=== PATIENT | male | born 1965 | race Caucasian/White ===

== ENCOUNTER → 2020-01-11 | Outpatient (CLI) | payer BC ==
--- NOTE | 2020-01-11 11:08 | US ---
EXAMINATION TYPE: US prostate transrectal DATE OF EXAM: 01/11/2020 COMPARISON: NONE CLINICAL HISTORY: R97.20 elevated psa. This examination was performed using the transrectal probe. EXAM MEASUREMENTS: Gland Size: 4.4 x 2.5 x 3.4 Volume: 19.6 Predicted PSA: 2.4 Actual PSA (if available):5.9 Heterogeneous echotexture with calcifications. Possible cyst visualized within the central zone IMPRESSION: Heterogenous prostate gland with central zone calcifications and possible cyst in the ce ntral zone. No suspicious sonographic findings. Screening prostate MRI could be considered in this pa tient with an elevated PSA. Predicted PSA = volume x 0.12 ng/ml Calculated Volume = 0.5236 x L x W x H
== END | disposition home or self-care (01) ==
LOC: RADUSWWP 09:26
PROVIDERS: ATTEND Internal Medicine
DX: N42.89 Other specified disorders of prostate (principal)
CPT/HCPCS: 76872

== ENCOUNTER → 2020-04-25 | Outpatient (CLI) | payer BC ==
--- NOTE | 2020-04-25 12:48 | XR ---
EXAMINATION TYPE: XR chest 2V DATE OF EXAM: 04/25/2020 COMPARISON: NONE TECHNIQUE: PA and lateral views submitted. HISTORY: Presurgical FINDINGS: The lungs are clear and there is no pneumothorax, pleural effusion, or focal pneumonia. Hypertrophi c and degenerative change of the spine. No overt failure. Heart size normal. Apical pleural thickenin g. IMPRESSION: 1. No acute process.
[2020-04-25 13:05] LABS: Basophils % (A) 1 %; Eosinophils # (A) 0.1 k/uL (0-0.7); Eosinophils % (A) 2 %; HGB 14.7 gm/dL (13.0-17.5); Lymphocytes % (A) 27 %; MCH 31.5 pg (25.0-35.0); MCHC 33.5 g/dL (31.0-37.0); Mean Platelet Volume 7.2; Monocytes # (A) 0.1 k/uL (0-1.0); Monocytes % (A) 4 %; Neutrophils # (A) 2.4 k/uL (1.3-7.7); Neutrophils % (A) 64 %; Platelet Count 212 k/uL (150-450); RBC 4.68 m/uL (4.30-5.90); RDW 12.7 % (11.5-15.5); WBC 3.8 k/uL (3.8-10.6)
[2020-04-25 13:19] LABS: African American GFR (CKD) >90 (>60 ml/min/1.73 sqM); Anion Gap 8 mmol/L; Blood Urea Nitrogen 16 mg/dL (9-20); Calcium 9.1 mg/dL (8.4-10.2); Carbon Dioxide 25 mmol/L (22-30); Chloride 105 mmol/L (98-107); Glucose 106 mg/dL (74-99); Non-African American GFR(CKD) >90 (>60 ml/min/1.73 sqM); Potassium 4.4 mmol/L (3.5-5.1); Sodium 138 mmol/L (137-145)
== END | disposition home or self-care (01) ==
LOC: LABPAT 11:21
PROVIDERS: ATTEND Urology
DX: Z01.818 Encounter for other preprocedural examination (principal); C61 Malignant neoplasm of prostate; R58 Hemorrhage, not elsewhere classified; R53.83 Other fatigue; R05 Cough
CPT/HCPCS: 36415; 71046; 80048; 85025; 86850; 86900; 86901; 93005

== ENCOUNTER 2020-05-04 09:46 | Observation (INO) | payer BC ==
--- NOTE | 2020-04-17 12:16 | P.HPIHPCON ---
History of Present Illness H&P Date: 05/04/20 Chief Complaint: Prostate cancer Mr Cerda is 55 yo male with hx of lesly 7(4+3) prostae cancer. We discussed with him the options including surgery and radiation therapy. We discussed the risk and benefits with him of each approach. I discussed with surgery the risk of urinary incontinence or erectile dysfunction, I also discussed with him risk of injury to nearby organs including but not limited bowels, rectum, bladder and blood vessels. I also discussed the risk from anesthesia with him. Which included blood clots, heart attack, stroker and even . He understood all the risk and agreed to proceed with a robotic-assisted radical prostatectomy and plevic lymph node dissection Consent for Procedure: I have explained the operation/procedure to the patient, including the risks, benefits, side effects, alternative therapies (including not receiving the proposed treatment or service), the likelihood of the patient achieving his/her goals, and potential recuperation problems for the procedure/sedation/analgesia, as well as any blood products, if indicated. I also explained to the patient the risks, benefits and side effects of the alternatives, as well as the risks related to not receiving the proposed procedure, care, treatment, or services. Surgical - Exam - General well developed, well nourished, no distress - Respiratory normal expansion, normal respiratory effort - Abdomen Abdomen: soft, non tender, no guarding, no rigid, no rebound - Psychiatric oriented to time, oriented to person, oriented to place Assessment and Plan Assessment: 55 yo male with hx lesly 7 (4+3) prostate cancer -OR for robotic prostatectomy and pelvic lymph node dissection
[2020-05-02 12:14] VITALS: BMI 34.9
[~2020-05-04 09:46] MED LIST: DEXAMETHASONE SOD PHOSPHATE 10 MG/ML 1 ML VIAL IV ONE; HYDROmorphone 0.5 MG/0.5 ML SYRINGE IVP PRN; LIDOCAINE 1% (10MG/ML) FOR IV START INTRADERMA PRN; ONDANSETRON 4 MG/2 ML VIAL IVP ONE
[2020-05-04] MEDS: LACTATED RINGERS 1,000 ML IV SCH (10:41)
[2020-05-04] MEDS ORDERED: ROCURONIUM BROMIDE 10 MG/ML 5 ML VIAL IV ONE (11:19)
[2020-05-04] MEDS ORDERED: LIDOCAINE 1% INJ 10MG/ML (20 ML MDV) ONE (11:19)
[2020-05-04] MEDS ORDERED: GLYCOPYRROLATE 0.2 MG/ML 2 ML VIAL ONE (11:19)
[2020-05-04] MEDS ORDERED: SUCCINYLCHOLINE CHLORIDE 100 MG/5 ML SYR IV ONE (11:19)
[2020-05-04] MEDS ORDERED: NEOSTIGMINE 1 MG/ML 10 ML VIAL ONE (11:19)
[2020-05-04] MEDS ORDERED: MIDAZOLAM 2 MG/2 ML VIAL ONE (11:19)
[2020-05-04] MEDS ORDERED: PROPOFOL 10 MG/ML 20 ML VIAL IV ONE (11:19)
[2020-05-04] MEDS ORDERED: PHENYLEPHRINE-0.9% NACL SYG 1 MG/10 ML SYRINGE ONE (11:19)
[2020-05-04] MEDS ORDERED: HYDROmorphone (PF) 1 MG/ML ONE (11:19)
[2020-05-04] MEDS ORDERED: ePHEDrine SULFATE/0.9% NACL/PF 50 MG/5 ML SYRINGE IV ONE (11:19)
[2020-05-04] MEDS ORDERED: fentaNYL (PF) 50 MCG/ML 2 ML AMP ONE (11:19)
[2020-05-04] MEDS ORDERED: BUPIVACAINE (PF) 0.25% 30 ML VIAL SQ ONE ×2 (11:26→16:51)
[2020-05-04] MEDS ORDERED: LACTATED RINGERS 1,000 ML IV ONE ×4 (12:30→16:39)
[2020-05-04] MEDS ORDERED: HYDROmorphone 1 MG/ML 1 ML SYRINGE IVP PRN (16:54)
--- NOTE | 2020-05-04 17:01 | P.OP ---
Date of Procedure: 05/04/20 Preoperative Diagnosis: Prostate cancer Postoperative Diagnosis: Same Procedure(s) Performed: Robotic prostatectomy, pelvic lymph node dissection Implants: None Anesthesia: INDIRA Surgeon: Pavel Hardwick Neon Light Installer #1: Joaquin Arizmendi Estimated Blood Loss (ml): 150 Pathology: other (Prostate, bilateral pelvic lymph node) Condition: stable Disposition: PACU Indications for Procedure: Mr Cerda is 55 yo male with hx of lesly 7(4+3) prostae cancer. We discussed with him the options including surgery and radiation therapy. We discussed the risk and benefits with him of each approach. I discussed with surgery the risk of urinary incontinence or erectile dysfunction, I also discussed with him risk of injury to nearby organs including but not limited bowels, rectum, bladder and blood vessels. I also discussed the risk from anesthesia with him. Which included blood clots, heart attack, stroker and even . He understood all the risk and agreed to proceed with a robotic-assisted radical prostatectomy and plevic lymph node dissection Operative Findings: Thickened urethra, sent for frozen to rule out prostatic tissue within the urethra. Frozen came back as fibromuscular tissue, negative for malignancy Description of Procedure: After preoperative antibiotics were started, the patient was taken to the operating room. Anesthesia was induced and the patient was placed in a low lithitomy position, with adequate padding of the pressure points, shoulders, back, legs and arms. He was then prepped and draped in the standard fashion. A critical pause was performed using two patient identifiers. A 16F fernandez catheter was placed to gravity drainage. A pneumo-peritoneum was created with placement of a Veress needle to 20 mm Hg without complication, and a 8 Fr trocar was placed above the umbillicus. Under direct vision a 8mm robotic ports was placed lateral to each rectus slightly below the camera port. The left iliac fossa 8mm port was placed. The right recruiting assistant right iliac fossa 12mm port and right paramedian 5mm portwere placed. After the patient was placed in the trendelenberg position, the robot was then docked to the 8mm robotic ports and then each robotic arm and tower was checked in relation to the patient's legs and hands to avoid inadvertent compression. The peritoneal cavity was inspected. An inverted U-shaped incision began laterally to the left medial umbilical ligament and extended high across the midline to the right umbilical ligament. The limbs of the "U" extended to the level of the vasa on both sides. We next developed the preperitoneal space and the space of Retzius. Cautery was used to dissected the bladder away from the prostate. After the anterior bladder neck was incised and the bladder entered the the posterior bladder neck was exposed and the ureteral orifces identified. The posterior bladder neck was then incised and dissected away from the prostate. The vas and the seminal vesicles were now exposed and dissected to their insertions into the prostate and were not spared. The posterior layer of the Denonvillier's fascia was incised to enter andres the plane between prostate and perirectal fat. Each lateral pedicle was controlled with clips and cautery for hemostasis. Nerve preservation was performed standard nerve sparing was performed on the right and standard was performed on the left. The puboprostatic ligament was incised where it inserted into the apex of the prostate and a plane between urethra and dorsal venous complex developed to expose the anterior urethral surface. The anterior wall of the urethra was transected with the cut setting a few millimeters distal to the apex of the prostate. The dorsal vein was ligated using 3-0 V lock. At this time it was noticed that the uretheral tissue was thickened. The urethral margin was sent for frozen, which came back as fibromuscular tissue negative for malignancy bilateral obturator and external iliac lymph node packets were carefully dissected after careful visualization of the hypogastric artery and obturator nerve. There was careful attention paid to hemostasis with judicious use of cautery. The urethrovesical anastomosis was performed . the posterior denovillers was reapproximated using 3-0 V lock. A 6 and 6 inch 3-0 V-Lock suture was used to anastomose the urethra and bladder, starting at the 6:00 posterior position. Mucosa was secured in every stitch, to ensure a mucosa to mucosa anastomosis. The stitch was regularly cinched and the anastomosis tightened. Care was taken to not violate the ureteral orifices. The Fernandez catheter was advanced, the bladder filled, and the anastomosis was tested, as described above. Anastomsis was watertight at 150mL The periumbilical fascia was closed with 1-0-PDS suture in running fashion. All ports were closed with a subcuticular 4-0 monocryl and Dermabond. Sponge, instrument, and needle counts were correct at the end of the case x2. All specimens including prostate and lymph nodes were sent to pathology for diagnosis and will be available in a week. The patient tolerated the surgery well and without complication. He awoke without difficulty and was taken to the recovery room in stable condition
[2020-05-04] MEDS: KETOROLAC 30 MG/ML 1 ML VIAL IVP SCH ×2 (18:22→23:04)
[2020-05-04] MEDS: D5-0.45% NACL WITH KCL 20MEQ/L 1,000 ML IV SCH (18:23)
[2020-05-04] MEDS: HEPARIN SODIUM,PORCINE 5,000 UNIT/ML 1 ML VIAL SQ SCH (23:58)
[2020-05-05] MEDS: D5-0.45% NACL WITH KCL 20MEQ/L 1,000 ML IV SCH ×3 (04:06→15:42)
[2020-05-05] MEDS: KETOROLAC 30 MG/ML 1 ML VIAL IVP SCH ×3 (05:36→17:33)
[2020-05-05] MEDS: HEPARIN SODIUM,PORCINE 5,000 UNIT/ML 1 ML VIAL SQ SCH ×2 (08:18→15:43)
--- NOTE | 2020-05-05 17:48 | P.PN ---
Subjective Progress Note Date: 05/05/20 Principal diagnosis: Prostate cancer POD #1 S/P Robotic prostatectomy, no acute overnight event, mild incisional pain, tolerating diet. denies N/V. Objective - Vital Signs Vital signs: Vital Signs Temp 98.1 F 05/05/20 14:10 Pulse 81 05/05/20 14:10 Resp 16 05/05/20 14:10 BP 100/64 05/05/20 14:10 Pulse Ox 94 L 05/05/20 14:10 Intake & Output 05/04/20 05/05/20 05/05/20 18:59 06:59 18:59 Intake Total 3125 437.5 1000 Output Total 150 850 Balance 2975 -412.5 1000 Weight 103.3 kg Intake: IV 3125 1000 D5-0.45% NaCl with KCl 1000 20Meq/l 1,000 ml @ 125 mls/hr IV .Q8H YUNI Rx#: [id number] Intake, IV Titration 437.5 Amount D5-0.45% NaCl with KCl 437.5 20Meq/l 1,000 ml @ 125 mls/hr IV .Q8H YUNI Rx#: [id number] Output: Urine 850 Estimated Blood Loss 150 Other: Voiding Method Indwelling Catheter Indwelling Catheter - Constitutional General appearance: Present: no acute distress - Gastrointestinal General gastrointestinal: Present: soft. Absent: distended, rigid - Psychiatric Psychiatric: Present: A&O x's 3 Assessment and Plan Assessment: POD #1 S/P Robotic prostatectomy Plan: -Ambulate -regular diet -Discharge home today vs tomorrow
[2020-05-06] MEDS: KETOROLAC 30 MG/ML 1 ML VIAL IVP SCH ×3 (00:05→11:06)
[2020-05-06] MEDS: HEPARIN SODIUM,PORCINE 5,000 UNIT/ML 1 ML VIAL SQ SCH ×2 (00:08→08:07)
[2020-05-06] MEDS: D5-0.45% NACL WITH KCL 20MEQ/L 1,000 ML IV SCH ×2 (01:43→08:06)
[2020-05-06 07:28] VITALS: BP 100/66; PULSE 70; RESP 20; TEMP 99.1
--- NOTE | 2020-05-06 10:50 | P.DS ---
Providers Date of admission: 05/05/20 08:59 Expected date of discharge: 05/06/20 Attending physician: Pavel Hardwick MD Primary care physician: Maria Luisa Pittman [facility] Course: on the day of admission, the patient underwent an uncomplicated robotic-assisted laparoscopic prostatectomy with bilateral pelvic lymphadenectomy. The perioperative course was uncomplicated. On the first postoperative day, the patient was uncomfortable and wished to remain hospitalized for an additional day. On the morning of discharge, he was considerably more comfortable. He was afebrile with stable vital signs. He was tolerating diet. The abdomen was soft, non-distended. The incisions were clean and dry. The Jernigan catheter was draining clear yellow urine. Procedures: Robotic-assisted laparoscopic prostatectomy (RALP) with bilateral pelvic lymphadenectomy on 05/04/2020 Patient Condition at Discharge: Good Plan - Discharge Summary Discharge Rx Participant: Yes New Discharge Prescriptions: New Levofloxacin [Levaquin] 500 mg PO DAILY 3 Days #3 tab Ibuprofen [Motrin] 600 mg PO Q8HR PRN #30 tab PRN Reason: Pain Hydrocodone/Acetaminophen [Tate 5-325] 1 - 2 each PO Q4HR PRN #6 tab PRN Reason: Pain Discharge Medication List Ibuprofen [Motrin] 600 mg PO Q8HR PRN #30 tab 05/05/20 [Rx] Levofloxacin [Levaquin] 500 mg PO DAILY 3 Days #3 tab 05/05/20 [Rx] Hydrocodone/Acetaminophen [Tate 5-325] 1 - 2 each PO Q4HR PRN #6 tab 05/06/20 [Rx] Follow up Appointment(s)/Referral(s): Pavel Hardwick MD [STAFF PHYSICIAN] - 05/15/20 9:00 am Patient Instructions/Handouts: Robot Assisted Laparoscopic Prostatectomy (DC) Activity/Diet/Wound Care/Special Instructions: No heavy lifting or straining for 6 weeks You may shower, but no baths Avoid heavy meals and greasy food Start you antibiotics one day prior to your appointment Discharge Disposition: HOME SELF-CARE
== END 2020-05-06 11:40 | disposition home or self-care (01) ==
LOC: OR 09:46 → 4SSUR 17:37 → OR 05-05 08:59 → 4SSUR 05-05 08:59
PROVIDERS: ADMIT Urology; ATTEND Urology
DX: C61 Malignant neoplasm of prostate (principal); E66.9 Obesity, unspecified; Z68.34 Body mass index [BMI] 34.0-34.9, adult
CPT/HCPCS: 38571; 55866; S2900; 86850; 86900; 86901; 88305; 88307; 88309; 88331